=== PATIENT | female | born 1960 | race African-American/Black ===

== ENCOUNTER → 2019-02-18 08:40 | Day surgery (SDC) | payer MEDICARE, MEDICAID ==
[~2019-02-18 08:40] MED LIST: Flumazenil* 0.1 MG/ML 5 ML MDV ONE; Iohexol 350 (CONTRAST) 200 ML MDV IV ONE; LORazepam TAB(*) 1 MG ONE; Lidocaine 1% INJ* 10 MG/ML 30 ML SDV ONE; Midazolam* 1 MG/ML 5 ML VIAL (5 MG) ONE; Naloxone* 0.4 MG/ML 1 ML VIAL ONE; Rivaroxaban TAB(*) 20 MG TAB PO ONE; fentaNYL* 50 MCG/ML 2 ML VIAL (100 MCG VIAL) ONE
[2019-02-18 09:50] LABS: ABS Basophils 0.2 10^3/ul (0-0.2); ABS Eosinophils 0.3 10^3/ul (0-0.6); ABS Lymphocytes 3.6 10^3/ul (1.0-4.8); ABS Monocytes 0.7 10^3/ul (0-0.8); Eosinophil % 2.9 %; Hematocrit 40 % (35-47); Hemoglobin 13.1 g/dL (12.0-16.0); Lymphocyte % 36.8 %; Mean Corpuscular HGB Conc 33 g/dL (31-36); Mean Corpuscular Hemoglobin 29 pg (27-31); Mean Corpuscular Volume 88 fL (80-97); Mean Platelet Volume 7.9 fL (7.4-10.4); Nucleated Red Blood Cells % 0.1; Platelet Count 347 10^3/uL (150-450); Red Blood Count 4.56 10^6 /uL (3.70-4.87); Red Cell Distribution Width 14 % (10.5-15); White Blood Count 9.8 10^3/uL (3.5-10.8)
[2019-02-18 10:06] LABS: BUN/Creatinine Ratio 18.8 (8-20); Blood Urea Nitrogen 13 mg/dL (6-24); CO2 Carbon Dioxide 32 mmol/L (22-32); Calcium 9.9 mg/dL (8.6-10.3); Chloride 101 mmol/L (101-111); EGFR African American 106.5 (>60); Glucose 119 mg/dL (70-100); Sodium 141 mmol/L (135-145)
[2019-02-18 10:27] LABS: INR 1.02 (0.82-1.09)
[2019-02-18 13:49] LABS: Anion Gap 8 mmol/L (2-11)
[2019-02-18 15:56] VITALS: BP 110/80
== END | disposition home or self-care (01) ==
LOC: CHICATH 08:40 → EDSTATUS 09:30
PROVIDERS: ATTEND Radiology Diagnostic Radiology
DX: Z86.718 Personal history of other venous thrombosis and embolism (principal); Z86.73 Personal history of transient ischemic attack (TIA), and cerebral infarction without residual deficits; Z79.01 Long term (current) use of anticoagulants; Z87.891 Personal history of nicotine dependence; Z45.89 Encounter for adjustment and management of other implanted devices; Z88.0 Allergy status to penicillin; E11.9 Type 2 diabetes mellitus without complications; Z79.84 Long term (current) use of oral hypoglycemic drugs
CPT/HCPCS: 36415; 37191; 37193; 75825; 76937; 80048; 85025; 85610; 88300; 99156; 99157; A9270-GY; C1769; C1887; J1644; J2250; J2310; J3010

== ENCOUNTER 2022-04-01 05:51 | Observation (INO) ==
[2022-04-01 06:26] LABS: ABS Basophils 0.1 10^3/ul (0-0.2); ABS Eosinophils 0.1 10^3/ul (0-0.6); ABS Lymphocytes 2.3 10^3/ul (1.0-4.8); ABS Monocytes 1.2 10^3/ul (0-0.8); ABS Neutrophils 7.4 10^3/ul (1.5-7.7); Eosinophil % 0.8 %; Hematocrit 37 % (35-47); Hemoglobin 12.7 g/dL (12.0-16.0); Lymphocyte % 20.7 %; Mean Corpuscular HGB Conc 34 g/dL (31-36); Mean Corpuscular Hemoglobin 30 pg (27-31); Mean Corpuscular Volume 87 fL (80-97); Mean Platelet Volume 8.1 fL (7.4-10.4); Platelet Count 320 10^3/uL (150-450); Red Blood Count 4.26 10^6 /uL (3.70-4.87); Red Cell Distribution Width 13 % (10-15); White Blood Count 11.2 10^3/uL (3.5-10.8)
[2022-04-01 06:35] LABS: Activated Partial Thrombo Time 36.8 seconds (26.0-38.0); INR 1.11 (0.86-1.15)
[2022-04-01 07:02] LABS: Albumin 3.7 g/dL (3.2-5.2); Albumin/Globulin Ratio 1.3 (1-3); C Reactive Protein 177.01 mg/L (<8.01); Calcium 9.3 mg/dL (8.6-10.3); Globulin 2.8 g/dL (2-4); Potassium 4.4 mmol/L (3.5-5.0); Total Bilirubin 0.6 mg/dL (0.2-1.0); Total Protein 6.5 g/dL (6.4-8.9); eGFR CKD-EPI 99.6 (>60)
[2022-04-01 07:44] LABS: Erythrocyte Sed Rate 65 mm/Hr (0-29)
[2022-04-01] MEDS ORDERED: Iohexol 300 (CONTRAST) 10 ML SDV IV ONE (09:29)
[2022-04-01] MEDS ORDERED: Morphine 2 MG/ML SYRINGE IV ONE (09:43)
[2022-04-01] MEDS ORDERED: Lactated Ringers 1000 ml BAG 1,000 ML IV ONE (12:11)
[2022-04-01] MEDS ORDERED: Lidocaine 1% w EPI 1:200,000 SDV 30 ML VIAL ONE (12:28)
[2022-04-01] MEDS ORDERED: oxyCODONE/Acetamin 5/325 mg TAB PO PRN (12:50)
[2022-04-01] MEDS ORDERED: Ondansetron 4 mg VIAL 2 MG/ML 2 ml VIAL IV PRN (12:50)
[2022-04-01] MEDS ORDERED: Naloxone 0.4 mg VIAL 0.4 mg/ml 1 ml VIAL IV PRN (12:50)
[2022-04-01] MEDS ORDERED: fentaNYL 100 mcg/2 ml 50 MCG/ML VIAL IV PRN (12:50)
[2022-04-01] MEDS ORDERED: Clindamycin 900 MG/D5W BAG 900 MG/50 ML BAG IVPB ONE (13:18)
[2022-04-01] MEDS ORDERED: Ketamine HCL 50 mg/ml 10 ml VIAL (500 MG) ONE (13:33)
[2022-04-01] MEDS ORDERED: Propofol 10 MG/ML 20 ML BTL ONE (13:40)
[2022-04-01] MEDS ORDERED: Labetalol IV 5 MG/ML 20 ml VIAL IV PUSH PRN (14:19)
[2022-04-01] MEDS ORDERED: Labetalol IV 5 MG/ML 20 ml VIAL ONE (14:23)
[2022-04-01] MEDS ORDERED: oxyCODONE/Acetamin 5/325 mg TAB ONE (14:39)
[2022-04-01] MEDS ORDERED: fentaNYL 100 mcg/2 ml 50 MCG/ML VIAL ONE (14:39)
[2022-04-01 17:01] VITALS: BP 132/89
== END 2022-04-01 17:00 | disposition home or self-care (01) ==
LOC: EDHOLD 05:51 → ED 05:51 → EDHOLD 12:28
PROVIDERS: ADMIT Surgery; ATTEND Surgery